=== PATIENT | male | born 1935 | race Caucasian/White ===

== ENCOUNTER 2018-01-19 19:19 | Inpatient (IN) ==
--- NOTE | 2018-01-19 19:51 | Emergency Department Note ---
Disposition Clinical Impression: Cellulitis of right lower extremity, Swelling of right lower extremity Disposition: Admitted As Inpatient Condition: Good Referrals: Kev Bowen [Primary Care Provider] - Forms: ED Satisfaction Letter Time of Disposition: 22:16 Extremity Problem HPI - General Chief complaint: ED Extremity Injury, Lower Stated complaint: "Bilat LE Edema/Wound/Infection on RLE" Time Seen by Provider: 01/19/18 19:31 Source: patient Mode of arrival: ambulatory Limitations: no limitations Nursing Notes Reviewed: Yes Vital Signs Reviewed: Yes - History of Present Illness HPI Narrative: Patient is an 82-year-old male with past medical history of chronic lower extremity swelling, hypertension, A. fib and is currently on Xarelto. Presents today due to concern for right lower extremity redness and swelling. He states that within the past week, he had an unknown injury to his right lower cavity. He does have mild dementia and is unable to recall any certain fall or injury. However, he noted some scabs on the anterior larsen of the right lower extremity. The past few days, he has developed some redness. He states that he saw his primary care physician around 4 days ago was started on Keflex. Since then, he believes that the redness of his anterior larsen is getting worse. He is also noticed some worsening swelling of the entire leg from the knee down the right. He does take Lasix 20 mg daily and has not noted any difference in his symptoms or swelling. Denies any orthopnea, chest pain, shortness of breath, nausea, vomiting, fevers, diarrhea, abdominal pain, dysuria or hematuria. Denies any missed doses of Keflex. He was referred here for further investigation of worsening right lower extremity redness and swelling. Pain Scale: 7 - Related Data Allergies Allergy/AdvReac Type Severity Reaction Status Date / Time No Known Allergies Allergy Verified 01/19/18 19:28 All systems ED: reviewed and negative except as stated. Constitutional: Denies: fever Cardiovascular: Denies: chest pain Respiratory: Denies: cough, dyspnea Gastrointestinal: Denies: abdominal pain, nausea, vomiting, diarrhea Integumentary: Denies: rash Neurological: Denies: headache, weakness, numbness Past Medical History - Past Medical History Attestation: Yes The following information was validated with the patient. Source: patient Medical history: Reports: hypertension, TIA, other - Social History Smoking Status: Former smoker Smokeless Tobacco Status: No Alcohol use: Reports: none Drug use: Reports: none Physical Exam - General Limitations: no limitations General appearance: alert, in no apparent distress - Head Head exam: atraumatic, normocephalic, normal inspection - Eye Eye exam: Present: normal appearance, PERRL, EOMI - ENT ENT exam: normal exam, normal oropharynx, mucous membranes moist - Neck Neck exam: Present: normal inspection, full ROM, trachea midline - Chest Chest inspection: Present: normal inspection, symmetric chest wall rise - Respiratory Respiratory exam: Present: normal lung sounds bilaterally - Cardiovascular Cardiovascular exam: Present: regular rate, normal rhythm, normal heart sounds - Abdominal Exam Abdominal exam: Present: soft, Non-Tender. Absent: tenderness, distention, guarding, rebound, rigidity - Extremities Exam Extremities exam: Present: other (Bilateral lower extremity pitting edema up to mid-calf; right worse than left. Mild venous stasis dermatitis from mid calf down bilateral lower extremity. Erythema approximately 15 cm x 10 cm on the right anterior larsen with 3 associated scabs. No active pus drainage. Small blister formation of medial aspect of right ankle. Dorsalis pedis pulses +2 over 4 bilaterally. ) Course Course Narrative: Vital stable. Physical exam did show some right anterior larsen redness, distal blsiter formation on the right medial ankle, bilateral lower extremity edema that is pitting, mild to moderate, worse on the right compared to left. We will obtain Doppler of the right lower extremity to assess for DVT. We will also obtain CBC, CMP, blood cultures. We will empirically start vancomycin and cefazolin for staph and strep coverage. Currently concern for failed outpatient treatment of RLE cellulitis. 22:07 Doppler negative for DVT. No major lab abnormality. We will proceed with admission for failed outpatient treatment of right lower extremity ce llulitis. Vancomycin and Cefazolin and have been started. Vital Signs Temperature 97.8 F 01/19/18 19:25 Pulse Rate 94 01/19/18 19:25 Respiratory Rate 12 01/19/18 19:25 Blood Pressure 161/89 01/19/18 19:25 O2 Sat by Pulse Oximetry 98 01/19/18 19:25 Temperature 97.8 F 01/19/18 19:29 Pulse Rate 94 01/19/18 20:41 Respiratory Rate 18 01/19/18 20:41 Blood Pressure 146/101 11/17/18 20:41 O2 Sat by Pulse Oximetry 100 01/19/18 20:41 Oxygen Delivery Oxygen Delivery Room Air Extremity Problem, Nontraumati - MDM Narrative Medical decision making narrative: Vital stable. Physical exam did show some right anterior larsen redness, distal blsiter formation on the right medial ankle, bilateral lower extremity edema that is pitting, mild to moderate, worse on the right compared to left. We will obtain Doppler of the right lower extremity to assess for DVT. We will also obtain CBC, CMP, blood cultures. We will empirically start vancomycin and cefa zolin for staph and strep coverage. Currently concern for failed outpatient treatment of RLE cellulitis. 22:07 Doppler negative for DVT. No major lab abnormality. We will proceed with admission for failed outpatient treatment of right lower extremity cellulitis. Vancomycin and Cefazolin and have been started. - Medical Records Medical records reviewed: Yes I reviewed the patient's medical records. - Lab Data Lab results reviewed: Yes I reviewed the patient's lab results. Result diagrams: 01/19/18 20:09 01/19/18 20:09 Lab Results 01/19/18 01/19/18 Range/Units 20:09 20:09 WBC 7.3 (4.3-11.1) K/mcL RBC 4.87 (4.19-5.50) M/mcL Hgb 15.5 (12.9-16.9) g/dL Hct 47.5 (37.5-50.1) % MCV 97.5 (83.0-100.0) fL MCH 31.8 (28.0-33.3) pg MCHC 32.6 (31.6-35.5) g/dL RDW 12.3 (11.5-14.5) % Plt Count 233 (140-400) K/mcL MPV 9.1 L (9.4-12.4) fL Immature Gran % 0.3 (0-4) % Seg Neutrophils % 59.9 % Lymphocytes % 28.0 % Monocytes % 9.1 % Eosinophils % 2.3 % Basophils % 0.4 % Neutrophils # 4.4 (1.6-8.9) K/mcL Lymphocytes # 2.0 (0.6-4.6) K/mcL Monocytes # 0.7 (0.0-1.3) K/mcL Eosinophils # 0.2 (0.0-0.6) K/mcL Basophils # 0.0 (0.0-0.2) K/mcL Sodium 141 (136-145) mEq/L Potassium 4.6 (3.5-5.1) mEq/L Chloride 106 (98-107) mEq/L Carbon Dioxide 27 (23-29) mEq/L BUN 21 (8-23) mg/dL Creatinine 1.04 (0.70-1.30) mg/dL Est GFR ( Amer) > 60 (> 60) Est GFR (Non-Af Amer) > 60 (> 60) BUN/Creatinine Ratio 20 (6-26) Glucose 126 H (70-105) mg/dL Calculated Osmolality 297 (280-300) Calcium 9.7 (8.6-10.3) mg/dL Total Bilirubin 0.7 (0.3-1.0) mg/dL AST 20 (13-39) Units/L ALT 21 (7-52) Units/L Alkaline Phosphatase 118 H (34-104) Units/L Serum Total Protein 6.8 (6.4-8.9) g/dL Albumin 4.4 (3.5-5.7) g/dL Globulin 2.4 (2.4-3.5) g/dL Albumin/Globulin Ratio 1.8 (1.1-2.2) - Radiology Data Radiology results reviewed: Yes I reviewed the patient's radiology results. S.B.A.R. - S.B.A.RBryn Situation: Demographics, MOA Background: Presenting Complaint, Relevant PMH, Meds, & Allergies Assessment: Vital Signs, Course and respsone to treatment, Exam Concerns, Patient/Family Expectation, Pertinant Lab Results Recommendation: Barrier(s) to disposition, Recommendation based on pending studies, treatments, or consults S.B.A.RBryn Report Given to: Dr. April HallBBrynATurner Repor Time: 22:17 Attestation Statement - Attestation Attestation: Resident Attestation: I examined this patient and my medical decision making was reviewed with the Resident Physician. I agree with the documented findings, disposition and treatment plan as described except to the extent set forth below. We independently had [id number] contact with the patient. Pt seen with Resident Physician Dr. Ponce. Patient with past medical history of peripheral vascular disease, A. fib on several so presenting to the emergency department for leg swelling as well as concern for cellulitis. Symptoms started approximately 2 weeks ago. He has a lesion to the anterior thigh of the left leg that is red in nature but more consistent with purpura and associated petechiae. The patient does not admit to any specific trauma to this area. Swelling started getting worse last week. He was seen by his primary care physician and started on antibiotics area patient has been taking Keflex for the last 4 days. The purpuric area is increasing in overall nature. Does have significant tenderness to the touch. Below this area to the lower extremity there is bullous changes with associated erythema and warmth. This area was significant only tender to the touch. This has continued to worsen despite the initiation of antibiotics. The patient lives at home and has lots of stairs. Unable to climb the stairs. Family is concerned about his well-being at home. Given the bullous changes concern for worsening infection. Given his peripheral vascular disease and unilateral leg swelling and DVT ultrasound will be performed. He does have DP pulse +2 and symmetric bilater ally. The right leg does have +1 pitting edema through the calf. Tenderness is located to the area of skin changes. No posterior calf tenderness. Blood work, bank, cefazolin has been ordered. Patient will be admitted for failed outpatient cellulitis.
[2018-01-19] MEDS ORDERED: *HR* HYDROcodone/Acet 5/325 mg TABLET PO ONE (20:21)
[2018-01-19] MEDS ORDERED: ceFAZolin 1,000 MG in Water for inj. (sterile) 20 ML 10 ML IVP ONE (20:24)
[2018-01-19 20:29] LABS: Basophils % 0.4 %; Eosinophils # 0.2 K/mcL (0.0-0.6); Eosinophils % 2.3 %; Hematocrit 47.5 % (37.5-50.1); Hemoglobin 15.5 g/dL (12.9-16.9); Immature Granulocytes % 0.3 % (0-4); Mean Corpuscular HGB Conc 32.6 g/dL (31.6-35.5); Mean Corpuscular Hemoglobin 31.8 pg (28.0-33.3); Mean Corpuscular Volume 97.5 fL (83.0-100.0); Mean Platelet Volume 9.1 fL (9.4-12.4); Monocytes # 0.7 K/mcL (0.0-1.3); Monocytes % 9.1 %; Neutrophils # 4.4 K/mcL (1.6-8.9); Platelet Count 233 K/mcL (140-400); Red Blood Count 4.87 M/mcL (4.19-5.50); Red Cell Distribution Width 12.3 % (11.5-14.5); Segmented Neutrophils % 59.9 %
[2018-01-19 20:50] LABS: Alanine Aminotransferase 21 Units/L (7-52); Albumin 4.4 g/dL (3.5-5.7); Albumin/Globulin Ratio 1.8 (1.1-2.2); Alkaline Phosphatase 118 Units/L (34-104); Aspartate Amino Transferase 20 Units/L (13-39); BUN/Creatinine Ratio 20 (6-26); Bilirubin,Total 0.7 mg/dL (0.3-1.0); Blood Urea Nitrogen 21 mg/dL (8-23); Calcium 9.7 mg/dL (8.6-10.3); Carbon Dioxide 27 mEq/L (23-29); Chloride 106 mEq/L (98-107); Globulin 2.4 g/dL (2.4-3.5); Glucose 126 mg/dL (70-105); Osmolality,Calculated 297 (280-300); Potassium 4.6 mEq/L (3.5-5.1); Sodium 141 mEq/L (136-145); Total Protein 6.8 g/dL (6.4-8.9); eGFR For Non-African Americans > 60 (> 60)
[2018-01-19] MEDS ORDERED: Acetaminophen 325 MG TABLET PO PRN (22:30)
[2018-01-19] MEDS ORDERED: Naloxone 0.4 MG/ML INJ IVP PRN (22:30)
--- NOTE | 2018-01-19 22:33 | Internal Med History&Physical ---
Date of Encounter: 01/19/18 Time of Encounter: 22:30 Internal Medicine - H&P: HPI Chief complaint: Lower extremity redness Admitted From: Emergency Dept Plans for Post Hospital Care: Home History of present illness: Mr. Lima is a 82 year old male with history of hypertension, A. fib on anticoagulation, dementia and hearing deficiency who presents accompanied by his daughter stating that he has noted that his right lower extremity cellulitis is worsening. He was evaluated by his PCP a few days ago and diagnosed with cellulitis and put on Keflex and has taken 4 days of it but the family has noted that it has worsened significantly today. Was only a small area of erythema on the right lower extremity on the larsen anteriorly but today it has worsened to the point that it is covering almost size of an adult hand. No reported fever. The patient believes that he may have injured it somehow and started as a small blister about 3 weeks ago. He has not remember exactly how. He thinks he also may have injured his right ankle as he has noted that it was bruised and swollen. He does have some chronic lower extremity edema and is on Lasix but denies any heart failure. Denies any fever, chills. Denies any other symptoms such as nausea, vomiting, headache, blurry vision, dizziness, chest pain, shortness breath, abdominal pain, diarrhea, constipation, urinary symptoms, or neurological symptoms. In the ED patient was immediately stable with unremarkable labs. He had lower extremity Dopplers checked and were negative for DVT. The patient does take Xarelto at home. He was given IV vancomycin and cefazolin in the ED. Past Med Surg Social Fam HX - Past Medical History Medical history: hypertension, TIA, other - Past Surgical History Additional surgical history: carotid endarterectomy - Social History Smoking Status: Former smoker Smokeless Tobacco Status: No Alcohol use: none Drug use: none Internal Medicine - H&P: Meds Allergy/AdvReac Type Severity Reaction Status Date / Time No Known Allergies Allergy Verified 01/19/18 19:28 All Systems PM: A 10-system review of systems was performed and is negative for pertinent findings except as documented above in the HPI. Review of systems: All systems reviewed are negative except for as mentioned above - Constitutional Vitals: Temp Pulse Resp BP Pulse Ox 97.8 F 94 18 146/101 100 01/19/18 19:29 01/19/18 20:41 01/19/18 20:41 01/19/18 20:41 01/19/18 20:41 Exam: GEN: NAD HEENT: AT, NC, No cyanosis, oral mucosa is moist, No JVD Lymphatics: No lymphadenoapthy Eyes: Extrocular muscles intact, anicteric CVS:RRR. S1, S2, No m/r/g RESP: CTAB ABD: Soft, NT, ND, +BS EXT: 1+ or extremity edema, right chin area anteriorly has redness with some distal blisters. Right ankle is swollen medially. There is mild warmth felt on the anterior larsen on the right with erythema is. 2+ DP NEURO: Nonfocal, CN II-XII intact, No focal motor or sensory deficits Psych: Cooperative, Not anxious or depressed Internal Med - H&P Results - Labs CBC & Chem 7: 01/19/18 20:09 01/19/18 20:09 Labs: Short CBC 01/19/18 Range/Units 20:09 WBC 7.3 (4.3-11.1) K/mcL Hgb 15.5 (12.9-16.9) g/dL Hct 47.5 (37.5-50.1) % Plt Count 233 (140-400) K/mcL Neutrophils # 4.4 (1.6-8.9) K/mcL BMP 01/19/18 20:09 Sodium 141 Potassium 4.6 Chloride 106 Carbon Dioxide 27 BUN 21 Creatinine 1.04 Glucose 126 H Calcium 9.7 Liver Function 01/19/18 Range/Units 20:09 Total Bilirubin 0.7 (0.3-1.0) mg/dL AST 20 (13-39) Units/L ALT 21 (7-52) Units/L Alkaline Phosphatase 118 H (34-104) Units/L Albumin 4.4 (3.5-5.7) g/dL - Assessment and plan (1) Cellulitis of right lower extremity Current Visit: Yes Status: Acute Assessment and plan: Patient failed outpatient therapy with oral Keflex. I will place him on IV vancomycin and mo the area to monitor progression. Blood cultures have been sent. Patient's laboratory workup was unremarkable. He does not look toxic at all. I anticipate he will be in the hospital possibly a couple days on IV antibiotics. He would rather be discharged sooner than later as he does have family members who flew in yesterday from [place]. (2) Ankle pain, right Current Visit: Yes Status: Acute Assessment and plan: Patient says that he has been having right ankle swelling and pain for the last couple weeks. He does not remember any actual injury or trauma but he thinks he may have injured it. He does have some bruising in that area and swelling. We will get an x-ray for now. Qualifiers: Chronicity: acute Qualified Code(s): M25.571 - Pain in right ankle and joints of right foot (3) Afib Current Visit: Yes Status: Acute Assessment and plan: Resume home medications including anticoagulations. Rate controlled Qualifiers: Atrial fibrillation type: paroxysmal Qualified Code(s): I48.0 - Paroxysmal atrial fibrillation (4) Hypertension Current Visit: Yes Status: Acute Assessment and plan: Resume home antihypertensives Qualifiers: Hypertension type: essential hypertension Qualified Code(s): I10 - Essential (primary) hypertension (5) DVT prophylaxis Current Visit: Yes Status: Acute Assessment and plan: Patient is on Xarelto - Time Spent With Patient Total time spent is greater than 50% in coordination of care (as documented) at patient's floor/unit and/or counseling patient:
[2018-01-20 04:23] LABS: Basophils % 0.5 %; Eosinophils # 0.2 K/mcL (0.0-0.6); Eosinophils % 2.9 %; Hematocrit 41.5 % (37.5-50.1); Immature Granulocytes % 0.1 % (0-4); Lymphocytes # 2.3 K/mcL (0.6-4.6); Lymphocytes % 31.2 %; Mean Corpuscular HGB Conc 33.7 g/dL (31.6-35.5); Mean Corpuscular Hemoglobin 32.2 pg (28.0-33.3); Mean Corpuscular Volume 95.4 fL (83.0-100.0); Mean Platelet Volume 9.1 fL (9.4-12.4); Monocytes # 0.7 K/mcL (0.0-1.3); Monocytes % 9.5 %; Neutrophils # 4.1 K/mcL (1.6-8.9); Platelet Count 200 K/mcL (140-400); Red Blood Count 4.35 M/mcL (4.19-5.50); Red Cell Distribution Width 12.3 % (11.5-14.5); Segmented Neutrophils % 55.8 %
[2018-01-20 04:41] LABS: BUN/Creatinine Ratio 22 (6-26); Blood Urea Nitrogen 18 mg/dL (8-23); Calcium 8.9 mg/dL (8.6-10.3); Carbon Dioxide 26 mEq/L (23-29); Chloride 107 mEq/L (98-107); Glucose 106 mg/dL (70-105); Magnesium 2.1 mg/dL (1.6-2.6); Osmolality,Calculated 292 (280-300); Potassium 4.1 mEq/L (3.5-5.1); Sodium 140 mEq/L (136-145); eGFR For Non-African Americans > 60 (> 60)
[2018-01-20] MEDS ORDERED: Aminoglycoside Consult 1 EACH MC ONE (10:33)
--- NOTE | 2018-01-20 12:22 | Internal Med Progress Note ---
Hospitalist Progress Note - Encounter Date of Encounter: 01/20/18 Time of Encounter: 10:20 - Subjective Interval History: States that his right leg redness and swelling has slightly gone down since the admission. No fever/chills or nausea/vomiting. - Exam Vitals: Temp Pulse Resp BP Pulse Ox 98 F 63 16 90/53 96 01/20/18 11:56 18 11:56 18 11:56 18 11:56 01/20/18 11:56 Exam: GEN: NAD CVS:RRR. S1, S2, No m/r/g RESP: CTAB ABD: Soft, NT, ND, +BS EXT: R anterior lower larsen has redness with 2-3cm blisters. Associated with warmth and slight tenderness, especially around the blisters. 2+ DP - Assessment and Plan (1) Cellulitis of right lower extremity Current Visit: Yes Status: Acute Assessment and Plan: Failed outpatient therapy with oral Keflex Started on IV Vanc, continue if continues to improve tomorrow, may be able to be discharged home tomorrow with PO abx elevate leg (2) Afib Current Visit: Yes Status: Chronic Assessment and Plan: Resume xarelto. Rate controlled without meds (3) DVT prophylaxis Current Visit: Yes Status: Acute Assessment and Plan: Patient is on Xarelto - Time Spent with Patient Total time spent is greater than 50% in coordination of care (as documented) at patient's floor/unit and/or counseling patient: Plan of Care Discussed with: patient Internal Medicine: Result - Labs CBC & Chem 7: 01/20/18 03:56 01/20/18 03:56 Labs: Short CBC 01/19/18 01/20/18 Range/Units 20:09 03:56 WBC 7.3 7.3 (4.3-11.1) K/mcL Hgb 15.5 14.0 D (12.9-16.9) g/dL Hct 47.5 41.5 (37.5-50.1) % Plt Count 233 200 (140-400) K/mcL Neutrophils # 4.4 4.1 (1.6-8.9) K/mcL BMP 01/19/18 01/20/18 20:09 03:56 Sodium 141 140 Potassium 4.6 4.1 Chloride 106 107 Carbon Dioxide 27 26 BUN 21 18 Creatinine 1.04 0.83 Glucose 126 H 106 H Calcium 9.7 8.9 Liver Function 01/19/18 Range/Units 20:09 Total Bilirubin 0.7 (0.3-1.0) mg/dL AST 20 (13-39) Units/L ALT 21 (7-52) Units/L Alkaline Phosphatase 118 H (34-104) Units/L Albumin 4.4 (3.5-5.7) g/dL - Impressions Impressions Ankle X-Ray 01/19/18 22:26 IMPRESSION: No acute osseous abnormality. Subcutaneous edema. D/ / 01/20/2018 07:08:54 Cristhian Atwood MD / anselmo Interpreting Provider: Cristhian Atwood MD Tibia/Fibula X-Ray 01/19/18 22:26 IMPRESSION: No acute osseous abnormality. Subcutaneous edema. D/ / 01/20/2018 07:08:54 Cristhian Atwood MD / anselmo Interpreting Provider: Cristhian Atwood MD Consult Discharge Plan - Plan Referrals: Kev Bowen [Primary Care Provider] - ____ (2) Afib Qualifiers: Atrial fibrillation type: paroxysmal Qualified Code(s): I48.0 - Paroxysmal atrial fibrillation
[2018-01-20] MEDS ORDERED: *HR* Rivaroxaban 10 MG TABLET PO SCH (17:00)
[2018-01-21] MEDS ORDERED: Psyllium 1 PACKET POWD.PACK PO PRN (02:02)
[2018-01-21 05:14] LABS: Basophils % 0.4 %; Eosinophils # 0.3 K/mcL (0.0-0.6); Eosinophils % 3.7 %; Hematocrit 45.1 % (37.5-50.1); Immature Granulocytes % 0.3 % (0-4); Lymphocytes # 2.1 K/mcL (0.6-4.6); Lymphocytes % 27.2 %; Mean Corpuscular HGB Conc 33.3 g/dL (31.6-35.5); Mean Corpuscular Hemoglobin 31.5 pg (28.0-33.3); Mean Corpuscular Volume 94.7 fL (83.0-100.0); Mean Platelet Volume 9.2 fL (9.4-12.4); Monocytes # 0.6 K/mcL (0.0-1.3); Monocytes % 7.7 %; Neutrophils # 4.6 K/mcL (1.6-8.9); Platelet Count 216 K/mcL (140-400); Red Blood Count 4.76 M/mcL (4.19-5.50); Red Cell Distribution Width 12.2 % (11.5-14.5); Segmented Neutrophils % 60.7 %
[2018-01-21 05:32] LABS: BUN/Creatinine Ratio 20 (6-26); Blood Urea Nitrogen 17 mg/dL (8-23); Calcium 8.9 mg/dL (8.6-10.3); Carbon Dioxide 24 mEq/L (23-29); Chloride 107 mEq/L (98-107); Glucose 105 mg/dL (70-105); Osmolality,Calculated 290 (280-300); Potassium 4.1 mEq/L (3.5-5.1); Sodium 139 mEq/L (136-145); eGFR For Non-African Americans > 60 (> 60)
[2018-01-21 07:35] VITALS: BP 105/68
--- NOTE | 2018-01-21 09:49 | Discharge Summary ---
- NOTES TO OUTPATIENT PROVIDER Notes to Outpatient Provider: Patient was admitted for right lower leg cellulitis, after failing outpatient therapy with Keflex. Started on IV vancomycin for 2 days with clinical improvement and will be discharged home on doxycycline. Orders not resulted at time of discharge: Pending orders 01/19/18 20:15 Culture,Blood [BC] Stat Date of Encounter: 01/21/18 Time of Encounter: 07:30 - Discharge Diagnosis (1) Cellulitis of right lower extremity Priority: Primary Status: Acute (2) Afib Priority: Secondary Status: Chronic Qualifiers: Atrial fibrillation type: paroxysmal Qualified Code(s): I48.0 - Paroxysmal atrial fibrillation (3) DVT prophylaxis Priority: Secondary Status: Acute Hospital course: Mr. Lima is a 82 year old male with history of afib was admitted for right lower leg cellulitis, after failing outpatient therapy with Keflex. Started on IV vancomycin for 2 days with clinical improvement and will be discharged home on doxycycline. Discharge discussed with: patient, nurse - Time Spent with Patient Total time spent providing and/or coordinating discharge services: 31 minutes - Discharge Medications Prescriptions: Doxycycline 100 mg PO BID 7 Days #14 capsule Home Medications: Doxycycline 100 mg PO BID 7 Days #14 capsule 01/21/18 [Rx] Rivaroxaban [Xarelto] 20 mg PO 1700 tablet 01/21/18 [Rx] Allergies/Adverse Reactions: Allergy/AdvReac Type Severity Reaction Status Date / Time No Known Allergies Allergy Verified 01/19/18 19:28 Date of admission: 01/19/18 22:29 Primary care physician: Zane Bowen Consults: 01/19/18 22:29 Consult to Physical Therapy [CONS] Routine Comment: Evaluate, develop and implement POC Reason for Consult: PT eval Does patient have active BEDREST order?: No Is patient medically & hemodynamically stable?: Yes - Constitutional Vitals: Temp Pulse Resp BP Pulse Ox 97.8 F 79 14 105/68 97 01/21/18 07:32 01/21/18 07:32 01/21/18 07:32 01/21/18 07:32 01/21/18 07:32 Exam: GEN: NAD CVS:RRR. S1, S2, No m/r/g RESP: CTAB ABD: Soft, NT, ND, +BS EXT: R anterior lower larsen redness significantly improved. 2-3cm blisters noted on the medial aspect of lower larsen. 2+ DP - Patient Status Disposition: Home, Self-Care Condition: Good Functional capacity at discharge: independent ambulation Overall status at discharge: patient is progressing back to baseline - Discharge Instructions Instructions: Cellulitis (DC), Atrial Fibrillation (DC) Follow Up With: Kev Bowen [Primary Care Provider] - - Diet and Activity Activity: resume usual activities as tolerated Diet: regular diet
== END 2018-01-21 10:34 | disposition home or self-care (01) | DRG 603 ==
LOC: 3ANU 19:19 → EMEROOARM 19:19 → SUATTDRO 22:29 → 3ANU 23:00
PROVIDERS: ADMIT Pediatrics; ATTEND Internal Medicine